=== PATIENT | female | born 1950 | race Caucasian/White ===

== ENCOUNTER 2018-12-11 12:53 | Emergency (ER) | payer MEDICARE, MEDICAID ==
[~2018-12-11] VITALS: Ht 160 cm; Wt 105.2 kg
--- OUTSIDE RECORDS SUMMARY | 2018-12-11 12:57 | XMS REPORT | Continuity of Care Document ---
Author Organization Unknown Address Unknown Allergies There is no data. Medications There is no data. Problems There is no data. Procedures There is no data. Results Test Result Range A1C - 08/12/18 09:00 HEMOGLOBIN A1c 8.4 % of total Hgb <5.7 CMP - 09/16/18 08:12 GLUCOSE 137 mg/dL 65-99 UREA NITROGEN (BUN) 31 mg/dL 7-25 CREATININE 1.65 mg/dL 0.50-0.99 eGFR NON-AFR. POLISH 32 mL/min/1.73m2 > OR=60 eGFR 37 mL/min/1.73m2 > OR=60 BUN/CREATININE RATIO 19 (calc) 6-22 SODIUM 138 mmol/L 135-146 POTASSIUM 5.4 mmol/L 3.5-5.3 CHLORIDE 109 mmol/L 98-110 CARBON DIOXIDE 20 mmol/L 20-32 CALCIUM 8.9 mg/dL 8.6-10.4 PROTEIN, TOTAL 7.1 g/dL 6.1-8.1 ALBUMIN 3.9 g/dL 3.6-5.1 GLOBULIN 3.2 g/dL (calc) 1.9-3.7 ALBUMIN/GLOBULIN RATIO 1.2 (calc) 1.0-2.5 BILIRUBIN, TOTAL 1.0 mg/dL 0.2-1.2 ALKALINE PHOSPHATASE 55 U/L 33-130 AST 20 U/L 10-35 ALT 14 U/L 6-29 Encounters ACCT No. Visit Date/Time Discharge Status Pt. Type Provider Facility Loc./Unit Complaint [id number] 09/23/2018 08:00:00 09/23/2018 23:59:59 CLS Outpatient VAMSHI CABRAL [facility] [id number] 09/16/2018 08:00:00 Document Registration [id number] 08/12/2018 10:15:00 Document Registration
--- NOTE | 2018-12-11 13:16 | ED Lower Extremity ---
General Chief Complaint: Lower Extremity Stated Complaint: LT LEG PAIN Source: patient, EMS, RN notes reviewed Exam Limitations: no limitations History of Present Illness Date Seen by Provider: Dec 11, 2018 Time Seen by Provider: 13:13 Initial Comments Patient presents via EMS c/ c/o left knee and right ankle pain. She states she rolled her right ankle causing her to fall onto her left knee. States her left knee really hurts. Denies any other injuries. Onset: just prior to arrival Severity: severe (03/06) Pain/Injury Location: left knee; right ankle Method of Injury: fell Modifying Factors: Worse With Movement; Improves With Rest Allergies and Home Medications Home Medications Hydrocodone Bit/Acetaminophen 1 Ea Tablet, 1 EACH PO Q6H PRN for BREAK THRU KNEE PAIN Prescribed by: HARRY SARAVIA on 12/11/18 2033 Patient Home Medication List Home Medication List Reviewed: Yes Review of Systems Constitutional: see HPI Musculoskeletal: see HPI, other (left knee and right ankle pain) All Other Systems Reviewed Negative Unless Noted: Yes (Negative excepted noted.) Physical Exam Vital Signs Vital Signs - First Documented 12/11/18 12:53 Temp 96.8 Pulse 72 Resp 18 B/P (MAP) 120/60 (80) Pulse Ox 92 O2 Delivery Room Air Capillary Refill : Height, Weight, BMI Height: '" Weight: lbs. oz. kg; BMI Method: General Appearance: WD/WN, no apparent distress, obese Cardiovascular: regular rate, rhythm Respiratory: no respiratory distress Knees: left knee bone tenderness, left knee pain, left knee soft tissue tenderness, left knee swelling Ankles: right ankle pain, right ankle soft tissue tenderness Neurologic/Psychiatric: no motor/sensory deficits, alert, normal mood/affect, oriented x 3 Skin: warm/dry Progress/Results/Core Measures Results/Orders My Orders Orders - HARRY SARAVIA DO Ankle 3 View Right (12/11/18 13:14) Knee 3 View Left (12/11/18 13:14) Knee Immobilizer (12/11/18 14:21) Crutches (12/11/18 14:21) Vital Signs/I&O 12/11/18 12:53 Temp 96.8 Pulse 72 Resp 18 B/P (MAP) 120/60 (80) Pulse Ox 92 O2 Delivery Room Air Progress Progress Note : Progress Note Discussed ashwin/ Charlie Alfaro and he requested the patient be placed in a knee immobilizer and made non-weight bearing and he will see her in clinic tomorrow, 12/12. Diagnostic Imaging Diagonstic Imaging: Xray Plain Films/CT/US/NM/MRI: knee (LEFT- (+) FX), ankle (RIGHT no FX) Departure Impression Primary Impression: Fracture of tibia Additional Impressions: Sprain and strain of ankle Fall Disposition: 01 HOME, SELF-CARE Condition: Stable Departure-Patient Inst. Decision time for Depature: 14:47 Patient Instructions: Tibial Plateau Fracture (DC) Add. Discharge Instructions: RECOMMEND 400 mg OF IBUPROFEN EVERY 6 HOURS FOR PAIN/SWELLING. FOLLOW UP WITH CHARLIE ALFARO TOMORROW, 12/12, IN THE [facility] SCHEDULED. MUST NOT STAND, OR BEAR WEIGHT ON YOUR LEFT LEG! All discharge instructions reviewed with patient and/or family. Voiced understanding. Scripts Hydrocodone Bit/Acetaminophen (LORTAB 7.5 MG TABLET) 1 Ea Tablet 1 EACH PO Q6H PRN for BREAK THRU KNEE PAIN, #14 TAB 0 Refills Prov: HARRY SARAVIA DO 12/11/18 HARRY SARAVIA DO Dec 11, 2018 13:16
--- NOTE | 2018-12-11 13:41 | Diagnostic Imaging Report ---
INDICATION: Pain. TECHNIQUE: Three views of the right ankle were obtained FINDINGS: The bones are osteopenic. The plafonds and talar dome are intact. The ankle mortise is symmetric. There is no fracture or dislocation. IMPRESSION: Osteopenia and minimal degenerative change; however, no acute fracture or dislocation. Dictated by: Dictated on workstation # [id number]
--- NOTE | 2018-12-11 13:42 | Diagnostic Imaging Report ---
INDICATION: Injury to left knee. TIME OF EXAM: 01:08 p.m. FINDINGS: Three views of the left knee were obtained. There is obliquely oriented lucency through the proximal tibia. There is also lipohemarthrosis present. Findings are consistent with proximal tibial fracture. Osseous density adjacent to the lateral femoral condyle is noted, which could represent an avulsed fracture fragment, however, acuity is indeterminate. Overall alignment is normal. There is medial compartmental degenerative change. IMPRESSION: Comminuted proximal tibial fracture with lipohemarthrosis. Dictated by: Dictated on workstation # [id number]
[2018-12-11] MEDS ORDERED: HYDR-34 PO (14:49)
[2018-12-11 15:00] VITALS: BP 155/86
== END 2018-12-11 15:00 | disposition home or self-care (01) ==
LOC: EDUNIT# 12:53 → ER FS 12:54
DX: S82.192A Other fracture of upper end of left tibia, initial encounter for closed fracture (principal); S93.401A Sprain of unspecified ligament of right ankle, initial encounter; W01.0XXA Fall on same level from slipping, tripping and stumbling without subsequent striking against object, initial encounter
CPT/HCPCS: 73562; 73610

== ENCOUNTER → 2018-12-24 | Outpatient (CLI) | payer MEDICARE, MEDICAID ==
[~2018-12-24] MED LIST: HYDR-34 PO
--- NOTE | 2018-12-24 12:16 | Diagnostic Imaging Report ---
INDICATION: Followup tibial fracture. COMPARISON: December 11, 2018. TECHNIQUE: Three radiographs of the left knee dated December 24, 2018. FINDINGS: Proximal tibial fracture is again identified. Fracture plane extending to the lateral tibial plateau is again seen. Blurring of the fracture plane margins with increasing sclerosis and minimal periosteal reaction is felt to relate to early healing. The anterior aspect of the fracture on the lateral radiograph appears minimally more impacted than the prior exam. No new fracture or dislocation. Improved lipohemarthrosis. No suspicious radiopaque foreign body. IMPRESSION: Interval healing of previously noted proximal tibial fracture. The anterior aspect of the fracture plane appears slightly more impacted when compared to the prior examination. No new acute osseous abnormality. Dictated by: Dictated on workstation # [id number]
== END ==
LOC: RAD FS 08:52
PROVIDERS: ATTEND Nurse Practitioner
DX: S82.192D Other fracture of upper end of left tibia, subsequent encounter for closed fracture with routine healing (principal)
CPT/HCPCS: 73562

== ENCOUNTER → 2019-01-07 | Outpatient (CLI) | payer MEDICARE, MEDICAID ==
--- NOTE | 2019-01-07 17:01 | Diagnostic Imaging Report ---
INDICATION: Fracture, follow-up. TECHNIQUE: Three views of the left knee. CORRELATION STUDY: 12/24/2018, 12/11/2018. FINDINGS: Impacted fracture at the medial tibial plateau is again demonstrated. Slight progressive sclerosis is present. The alignment is otherwise stable. Portion of the fracture line is still present and visualized. There is linear extension of the fracture line to the lateral tibial plateau but without significant depression or offset. Fracture fragment adjacent to the lateral femoral condyle is demonstrated but appears slightly less pronounced suggestive of some bony resorption. Ossification of the fibular head unchanged. Soft tissue edema. IMPRESSION: 1. Suggestion of slight progressive healing changes with perhaps some slightly more impacted appearance about the medial tibial fracture. Dictated by: Dictated on workstation # [id number]
== END ==
LOC: RAD 09:12
PROVIDERS: ATTEND Nurse Practitioner
DX: S82.192D Other fracture of upper end of left tibia, subsequent encounter for closed fracture with routine healing (principal)
CPT/HCPCS: 73562

== ENCOUNTER → 2019-01-21 | Outpatient (CLI) | payer MEDICARE, MEDICAID ==
--- NOTE | 2019-01-21 19:31 | Diagnostic Imaging Report ---
INDICATION: Fracture. Comparison made with prior examination from 01/07/2019. FINDINGS: There is stable alignment of the tibial plateau fracture with some sclerosis. This is essentially unchanged when compared to the prior examination. There is no other acute fracture or dislocation. Soft tissues are unremarkable. IMPRESSION: Stable alignment of the healing fracture of the medial tibial plateau. Dictated by: Dictated on workstation # [id number]
== END ==
LOC: RAD FS 08:07
PROVIDERS: ATTEND Nurse Practitioner
DX: S82.192D Other fracture of upper end of left tibia, subsequent encounter for closed fracture with routine healing (principal)
CPT/HCPCS: 73562

== ENCOUNTER → 2019-02-20 | Outpatient (CLI) | payer MEDICARE, MEDICAID ==
--- NOTE | 2019-02-20 08:50 | Diagnostic Imaging Report ---
Indication: Tibial fracture. AP and lateral views of the left knee are obtained. Comparison is made to study of 01/21/2019. There is continued sclerosis about the slightly angulated, mildly impacted, proximal tibial metaphyseal region fracture. Fracture line is largely obscured by bridging callus. Mild marginal spurring is again noted about the knee joint. There is no evidence of new fracture or malalignment. No significant joint fluid is seen. Impression: Further ongoing healing of mildly impacted proximal tibial fracture. Dictated by: Dictated on workstation # [id number]
== END ==
LOC: RAD FS 08:25
PROVIDERS: ATTEND Nurse Practitioner
DX: S82.192D Other fracture of upper end of left tibia, subsequent encounter for closed fracture with routine healing (principal)
CPT/HCPCS: 73560

== ENCOUNTER → 2019-03-11 | Outpatient (CLI) | payer MEDICARE, MEDICAID ==
--- NOTE | 2019-03-11 15:19 | Diagnostic Imaging Report ---
INDICATION: Left knee fracture, follow-up. TIME OF EXAM: 02:11 p.m. COMPARISON: Comparison is made with prior radiographs from 02/20/2019. FINDINGS: Continued healing of the proximal tibia, medial side is noted. There appears to be some increasing sclerosis consistent with healing. Fracture lines are blurring. Overall alignment is stable. Medial and lateral compartments are maintained. IMPRESSION: Continued healing proximal tibial fracture when compared with exam from 02/20/2019. Dictated by: Dictated on workstation # [id number]
--- NOTE | 2019-03-11 15:24 | Diagnostic Imaging Report ---
INDICATION: Pain in left foot. TIME OF EXAM: 2:15 p.m. FINDINGS: Three views of the left foot were obtained. There is severe demineralization of the left foot. The metatarsals appear to be intact. The phalanges appear intact. Midfoot and hindfoot are unremarkable. No fractures are seen. There is some dorsal soft tissue swelling. IMPRESSION: Dorsal soft tissue swelling and severe demineralization. No acute fracture is detected. Dictated by: Dictated on workstation # [id number]
== END ==
LOC: RAD FS 13:55
PROVIDERS: ATTEND Nurse Practitioner
DX: S82.192D Other fracture of upper end of left tibia, subsequent encounter for closed fracture with routine healing (principal); M79.675 Pain in left toe(s)
CPT/HCPCS: 73560; 73630

== ENCOUNTER → 2019-03-20 | Outpatient (CLI) | payer MEDICARE, MEDICAID ==
--- NOTE | 2019-03-20 08:44 | Diagnostic Imaging Report ---
INDICATION: Left knee fracture follow-up. FINDINGS: PA and lateral views of the left knee show healing fracture of the medial tibial plateau. Alignment and positioning is unchanged from the comparison exam from 03/11/2019. IMPRESSION: Stable healing proximal tibial fracture. Dictated by: Dictated on workstation # [id number]
== END ==
LOC: RAD FS 08:07
PROVIDERS: ATTEND Nurse Practitioner
DX: S82.192D Other fracture of upper end of left tibia, subsequent encounter for closed fracture with routine healing (principal); X58.XXXD Exposure to other specified factors, subsequent encounter
CPT/HCPCS: 73562

== ENCOUNTER → 2019-04-15 | Outpatient (CLI) | payer MEDICARE, MEDICAID ==
--- NOTE | 2019-04-15 16:03 | Diagnostic Imaging Report ---
INDICATION: Asymptomatic postmenopausal screening COMPARISON: Baseline FINDINGS: AP Spine L1-L4: [BMD (g/cm2): 1.275] [T-Score: 0.6] [Z-Score: 1.1] [BMD Previous: NA] [BMD % Change: NA] LT Hip Neck: [BMD (g/cm2): 0.729] [T-Score: -2.2] [Z-Score: -1.5] LT Hip Total: [BMD (g/cm2):0.818] [T-Score:-1.5] [Z-Score: -1.1] [BMD Previous: NA] [BMD % Change: NA] RT Hip Neck: [BMD (g/cm2):0.813] [T-Score:-1.6] [Z-Score:-0.9] RT Hip Total: [BMD (g/cm2):0.861] [T-score:-1.2] [Z-Score:-0.7] [BMD Previous:NA] [BMD % Change:NA] *Indicates significant change from prior examination based on 95% confidence level. World Health Organization criteria for BMD interpretation classify patients as Normal (T-score at or above -1.0), Osteopenic (T-score between -1.0 and -2.5) or Osteoporotic (T-score at or below -2.5). LIMITATIONS AND MODIFICATION: None. FRACTURE RISK (FRAX SCORE): The ten year probability of (%): Major Osteoporotic Fracture: [17.3] Hip Fracture: [3.0] IMPRESSION: 1. Osteopenia (Low bone mass). 2. Baseline examination. 3. See below National Osteoporosis Foundation guidelines on when to potentially initiate pharmacologic therapy. Based on the National Osteoporosis Foundation Guidelines, pharmacologic treatment should be initiated in any of the following, unless clinical conditions suggest otherwise: * Any patient with prior fragility fracture of the hip or vertebrae. A spine fracture indicates 5X risk for subsequent spine fracture and 2X risk for subsequent hip fracture. * Osteoporosis (T-score <-2.5). * Postmenopausal women and men age 50 and older with low bone mass/osteopenia (T-score between -1.0 and -2.5) by DXA and 10-year major osteoporotic fracture greater than 20% or a 10-year probability of hip fracture greater than 3%. These fracture risks are supplied above in the FRAX score, if applicable. * Clinician judgement and/or patient preferences may indicate treatment for people with 10-year fracture probabilities above or below these levels. Dictated by: Dictated on workstation # [id number]
== END ==
LOC: RAD 10:28
PROVIDERS: ATTEND Nurse Practitioner Family
DX: Z13.820 Encounter for screening for osteoporosis (principal); M85.89 Other specified disorders of bone density and structure, multiple sites; M19.90 Unspecified osteoarthritis, unspecified site; Z78.0 Asymptomatic menopausal state
CPT/HCPCS: 77080

== ENCOUNTER 2020-02-20 11:28 | Emergency (ER) | payer MEDICARE, MEDICAID ==
[~2020-02-20] VITALS: Ht 160 cm; Wt 105.2 kg
[2020-02-20 12:25] LABS: BASOPHILS % (AUTO) 0 % (0-10); EOSINOPHILS % (AUTO) 0 % (0-10); HEMATOCRIT 34 % (35-52); HEMOGLOBIN 11.1 G/DL (11.5-16.0); LYMPHOCYTES # (AUTO) 1.1 X 10^3 (1.0-4.0); LYMPHOCYTES % (AUTO) 19 % (12-44); MEAN CORPUSCULAR HEMOGLOBIN 30 PG (25-34); MEAN CORPUSCULAR HGB CONC 33 G/DL (32-36); MEAN CORPUSCULAR VOLUME 94 FL (80-99); MEAN PLATELET VOLUME 9.3 FL (7.4-10.4); MONOCYTES # (AUTO) 0.3 X 10^3 (0.0-1.0); MONOCYTES % (AUTO) 6 % (0-12); NEUTROPHILS # (AUTO) 4.4 X 10^3 (1.8-7.8); NEUTROPHILS % (AUTO) 74 % (42-75); PLATELET COUNT 252 10^3/uL (130-400); WHITE BLOOD COUNT 5.9 10^3/uL (4.3-11.0)
--- NOTE | 2020-02-20 12:33 | ED Respiratory ---
General Chief Complaint: Respiratory Problems Stated Complaint: SOB Nursing Triage Note: Patient reports cough, shortness of breath, fever, and body aches since last . Source: patient Exam Limitations: no limitations History of Present Illness Date Seen by Provider: Feb 20, 2020 Time Seen by Provider: 11:30 Initial Comments The patient is a very pleasant 69-year-old female presents for evaluation of cough, shortness of breath, fever, body aches over the last 8 days. She went to the walk-in clinic where they noted that she had a temperature of 101F as well as a room air saturation of 89%. She states that she normally stays at home and has not really come into contact with any other people but specifically denies any sick contacts. She is alert and oriented 4, calm, and appears to be in no distress at this time. She notes that her symptoms started on after she received her influenza vaccination. Timing/Duration: other (8 days ago) Severity: moderate Associated Symptoms: cough, fever/chills, shortness of breath Allergies and Home Medications Allergies Coded Allergies: butorphanol (Verified Allergy, Unknown, 02/20/20) Home Medications Hydrocodone Bit/Acetaminophen 1 Ea Tablet, 1 EACH PO Q6H PRN for BREAK THRU KNEE PAIN Prescribed by: HARRY SARAVIA on 12/11/18 1449 Patient Home Medication List Home Medication List Reviewed: Yes Review of Systems Review of Systems Constitutional: fever, malaise Respiratory: cough Cardiovascular: no symptoms reported Gastrointestinal: no symptoms reported Genitourinary: no symptoms reported Musculoskeletal: no symptoms reported Skin: no symptoms reported Psychiatric/Neurological: No Symptoms Reported Hematologic/Lymphatic: No Symptoms Reported Immunological/Allergic: no symptoms reported All Other Systems Reviewed Negative Unless Noted: Yes Past Zyspegs-Fopcdx-Fotatu Hx Past Med/Social Hx: Reviewed Nursing Past Med/Soc Hx Patient Social History Alcohol Use: Denies Use Recreational Drug Use: No Smoking Status: Never a Smoker 2nd Hand Smoke Exposure: No Recent Foreign Travel: No Contact w/Someone Who Travel: No Recent Infectious Disease Expo: No Recent Hopitalizations: No Physical Abuse: No Sexual Abuse: No Mistreated: No Fear: No Seasonal Allergies Seasonal Allergies: No Past Medical History Surgeries: Yes Hysterectomy, Oophorectomy, Tonsillectomy Respiratory: No Cardiac: No High Cholesterol, Hypertension Neurological: No [employer] History: Hysterectomy Genitourinary: No Gastrointestinal: No Musculoskeletal: No Arthritis Endocrine: Yes Diabetes, Insulin dep HEENT: No Cancer: No Psychosocial: No Depression Integumentary: No Physical Exam Vital Signs - First Documented 02/20/20 11:42 Temp 38.0 Pulse 79 Resp 24 B/P (MAP) 128/70 (89) Pulse Ox 92 O2 Delivery Nasal Cannula O2 Flow Rate 3.00 Capillary Refill : Less Than 3 Seconds Height: 5'3.00" Weight: 232lbs. oz. 105.329980sm; 41.00 BMI Method:Stated General Appearance: WD/WN, no apparent distress Eyes: Bilateral Eye Normal Inspection HEENT: PERRL/EOMI, normal ENT inspection Neck: non-tender, full range of motion, supple, normal inspection Respiratory: normal breath sounds, no respiratory distress, no accessory muscle use, crackles (left lung field) Cardiovascular: regular rate, rhythm, no edema, no JVD, no murmur Gastrointestinal: normal bowel sounds, non tender, soft, no pulsatile mass Extremities: normal range of motion, non-tender, normal inspection, no pedal edema, no calf tenderness Neurologic/Psychiatric: roll panner II-XII nml as tested, no motor/sensory deficits, alert, normal mood/affect, oriented x 3 Skin: normal color, warm/dry Focused Exam Lactate Level 02/20/20 12:05: Lactic Acid Level 1.50 Lactic Acid Level Laboratory Tests Test 02/20/20 12:05 Lactic Acid Level 1.50 MMOL/L (0.50-2.00) Progress/Results/Core Measures Suspected Sepsis Recent Fever Within 48 Hours: Yes Infection Criteria Present: Suspected New Infection New/Unexplained Altered Menta: No Sepsis Screen: Possible Sepsis Risk SIRS Temperature: Pulse: 79 Respiratory Rate: 24 Laboratory Tests 02/20/20 12:05: White Blood Count 5.9 Blood Pressure 128 /70 Mean: 89 02/20/20 12:05: Lactic Acid Level 1.50 Laboratory Tests 02/20/20 12:05: Creatinine 2.34H, Platelet Count 252, Total Bilirubin 0.6 Results/Orders Lab Results Laboratory Tests Test 02/20/20 12:05 02/20/20 12:20 Range/Units White Blood Count 5.9 4.3-11.0 10^3/uL Red Blood Count 3.65 L 4.35-5.85 10^6/uL Hemoglobin 11.1 L 11.5-16.0 G/DL Hematocrit 34 L 35-52 % Mean Corpuscular Volume 94 80-99 FL Mean Corpuscular Hemoglobin 30 25-34 PG Mean Corpuscular Hemoglobin Concent 33 32-36 G/DL Red Cell Distribution Width 12.9 10.0-14.5 % Platelet Count 252 130-400 10^3/uL Mean Platelet Volume 9.3 7.4-10.4 FL Immature Granulocyte % (Auto) 0 % Neutrophils (%) (Auto) 74 42-75 % Lymphocytes (%) (Auto) 19 12-44 % Monocytes (%) (Auto) 6 0-12 % Eosinophils (%) (Auto) 0 0-10 % Basophils (%) (Auto) 0 0-10 % Neutrophils # (Auto) 4.4 1.8-7.8 X 10^3 Lymphocytes # (Auto) 1.1 1.0-4.0 X 10^3 Monocytes # (Auto) 0.3 0.0-1.0 X 10^3 Eosinophils # (Auto) 0.0 0.0-0.3 10^3/uL Basophils # (Auto) 0.0 0.0-0.1 10^3/uL Immature Granulocyte # (Auto) 0.0 0.0-0.1 10^3/uL Sodium Level 133 L 135-145 MMOL/L Potassium Level 5.3 H 3.6-5.0 MMOL/L Chloride Level 99 98-107 MMOL/L Carbon Dioxide Level 19 L 21-32 MMOL/L Anion Gap 15 H 5-14 MMOL/L Blood Urea Nitrogen 44 H 7-18 MG/DL Creatinine 2.34 H 0.60-1.30 MG/DL Estimat Glomerular Filtration Rate 21 BUN/Creatinine Ratio 19 Glucose Level 193 H 70-105 MG/DL Lactic Acid Level 1.50 0.50-2.00 MMOL/L Calcium Level 8.7 8.5-10.1 MG/DL Corrected Calcium 9.0 8.5-10.1 MG/DL Magnesium Level 1.5 L 1.6-2.4 MG/DL Total Bilirubin 0.6 0.1-1.0 MG/DL Aspartate Amino Transf (AST/SGOT) 52 H 5-34 U/L Alanine Aminotransferase (ALT/SGPT) 28 0-55 U/L Alkaline Phosphatase 58 40-136 U/L Troponin I < 0.30 <0.30 NG/ML Pro-B-Type Natriuretic Peptide 133.3 H <75.0 PG/ML Total Protein 7.4 6.4-8.2 GM/DL Albumin 3.6 3.2-4.5 GM/DL My Orders Orders - ALEXIS ALMARAZ DO Cbc With Automated Diff (02/20/20 11:37) Comprehensive Metabolic Panel (02/20/20 11:37) Lactic Acid Analyzer (02/20/20 11:37) Magnesium (02/20/20 11:37) Blood Culture (02/20/20 11:37) Chest 1 View Ap/Pa Only (02/20/20 11:37) Coronavirus Sars-Cov-2 So 2018 (02/20/20 11:37) Ekg Tracing (02/20/20 11:37) Continuous Ekg Monitoring (02/20/20 11:37) Probnp Fs (02/20/20 11:37) Troponin I Fs (02/20/20 11:37) Continuous Pulse Ox (02/20/20 11:37) Ns Iv 1000 Ml (Sodium Chloride 0.9%) (02/20/20 13:00) Acetaminophen Tablet (Tylenol Tablet) (02/20/20 13:00) Oxygen-Administer (02/20/20 12:51) Medications Given in ED Current Medications Medications Dose Ordered Sig/Tomas Route Start Time Stop Time Status Last Admin Dose Admin Acetaminophen 1,000 mg ONCE ONCE PO 02/20/20 13:00 02/20/20 13:01 DC 02/20/20 13:19 1,000 MG Vital Signs/I&O 02/20/20 11:42 Temp 38.0 Pulse 79 Resp 24 B/P (MAP) 128/70 (89) Pulse Ox 92 O2 Delivery Nasal Cannula O2 Flow Rate 3.00 Capillary Refill : Less Than 3 Seconds Blood Pressure Mean: 89 Progress Note : Progress Note @1340 - The patient was updated on lab and imaging results and stated to the nurse that she refused admission and wanted to leave AGAINST MEDICAL ADVICE. The patient has multiple pets at home and has a roommate. The nurse Deann called the patient's roommate Hyun who stated that she would not be able to change the patient's mind. I spoke with the patient at length and it was expressed both by the nurse and myself that without oxygen and medical treatment the patient could . She is alert and oriented 4 and expresses verbal understanding of this risk. The patient that we would be happy to take care of her if she changes her mind and comes back. She also understands that [facility]'m [facility] but she does not want to be admitted at any hospital. She does understand the risks of leaving and states that she will sign the AGAINST MEDICAL ADVICE paperwork. ECG Comment @1210 - normal sinus rhythm, rate of 78, mild left axis deviation is present, somewhat low voltage, no acute ischemic findings noted, no STEMI, reviewed and interpreted by myself Departure Impression Primary Impression: Hypoxia Additional Impressions: Acute URI Hypotension Requires supplemental oxygen Renal insufficiency Left against medical advice Disposition: 07 AGAINST MEDICAL ADVICE Condition: Against Medical Advice Departure-Patient Inst. Decision time for Depature: 13:44 Referrals: [facility] (PCP) Primary Care Physician VAMSHI CABRAL APRN (Family) Primary Care Physician Patient Instructions: Low Blood Pressure, Shortness of Breath (Dyspnea) (DC), Viral Syndrome (DC), Acute Kidney Injury Add. Discharge Instructions: You may return at any time even a UTI was to leave AGAINST MEDICAL ADVICE today. Please reconsider your decision to go home as this can be life-threatening as we discussed. ALEXIS ALMARAZ DO Feb 20, 2020 12:33
--- NOTE | 2020-02-20 12:34 | Diagnostic Imaging Report ---
INDICATION: Shortness of air. Fever. COMPARISON: None. FINDINGS: Single frontal radiographic view of the chest was obtained and demonstrates mild cardiomegaly and pulmonary vascular congestion. Lungs are clear. There is no focal consolidation, large effusion, nor pneumothorax. Osseous structures show no gross acute abnormalities. IMPRESSION: 1. Cardiomegaly and pulmonary vascular congestion. Dictated by: Dictated on workstation # [id number]
[2020-02-20 12:45] LABS: BUN/CREATININE RATIO 19; CARBON DIOXIDE 19 MMOL/L (21-32); CHLORIDE 99 MMOL/L (98-107); CREATININE SERUM 2.34 MG/DL (0.60-1.30); GFR ESTIMATED 21; GLUCOSE 193 MG/DL (70-105); POTASSIUM 5.3 MMOL/L (3.6-5.0); SODIUM 133 MMOL/L (135-145)
[2020-02-20 12:46] LABS: ALANINE AMINOTRANSFERASE 28 U/L (0-55); ALBUMIN 3.6 GM/DL (3.2-4.5); ALKALINE PHOSPHATASE 58 U/L (40-136); BILIRUBIN,TOTAL 0.6 MG/DL (0.1-1.0); CALCIUM 8.7 MG/DL (8.5-10.1); MAGNESIUM 1.5 MG/DL (1.6-2.4); TOTAL PROTEIN 7.4 GM/DL (6.4-8.2)
[2020-02-20] MEDS ORDERED: NS IV 1000 ML 1,000 ML IV SCH (13:00)
[2020-02-20] MEDS ORDERED: ACETAMINOPHEN 500 MG TAB (TYLENOL) PO ONE (13:00)
--- NOTE | 2020-02-20 13:27 | NUR ---
Patient states she will not go to any facility to be admitted to a hospital. Informed patient that she is requiring 5 liters of oxygen to maintain oxygen saturations 89-90%, informed that her renal function is impaired, informed that her blood pressure is low and that she could decompensate and pass away very quickly without medical treatment. Patient verbalizes understanding of her medical condition and continues to refuse admission or transfer. Questioned patient on why she does not want to be admitted, and patient will not give a reason, simply states "I just don't want to go." Called patient's friend with patient's permission and informed of patient's condition and situation. Friend states she had a very difficult time convincing patient to come to the ED and does not believe she can persuade patient to be admitted. Dr. Albarran informed of patient's refusal and in patient's room to discuss her situation at this time.
[2020-02-20 14:00] VITALS: BP 89/54
== END 2020-02-20 14:00 | disposition left against medical advice (07) ==
LOC: EDUNIT# 11:28 → ER FS 11:31
DX: U07.1 COVID-19 (principal); R09.02 Hypoxemia; I95.9 Hypotension, unspecified; N28.9 Disorder of kidney and ureter, unspecified; Z99.81 Dependence on supplemental oxygen; Z88.6 Allergy status to analgesic agent
CPT/HCPCS: 36415; 71045; 80053; 83605; 83735; 83880; 84484; 85025; 87040; 99284; U0002; 87635

== ENCOUNTER 2020-02-22 10:17 | Inpatient (IN) | payer MEDICARE, MEDICAID ==
[~2020-02-22] VITALS: Ht 160 cm; Wt 107.1 kg
--- NOTE | 2020-02-22 11:18 | ED Dyspnea ---
General Chief Complaint: Respiratory Problems Stated Complaint: SOB Nursing Triage Note: Patient seen in the ED on Sunday for shortness of breath, cough, and fever. Patient received positive COVID test from that ED visit. Patient left AMA on Sunday refusing admission, despite oxygen saturations 86-87% on room air, B/P 89/54, and renal insufficiency. Patient presents to the ED again today stating she is having difficulty breathing. Patient states she is agreeable to being admitted to [facility] in [place] today. Patient reports she took advil this morning around 0730 for fever. Source of Information: Patient, Old Records History of Present Illness Date Seen by Provider: Feb 22, 2020 Time Seen by Provider: 10:48 Initial Comments 69-year-old female presenting with continued shortness of breath and cough since being seen on Sunday here in the emergency department. She was diagnosed with croup with hand pneumonia at that time but refused admission and left AGAINST MEDICAL ADVICE. She states that she was continuing to feel worse and now agrees to being admitted. She would like to be admitted down to [facility]. She states that she has had a fever up to 101 Fahrenheit over the weekend at [facility]. She continues to have cough and shortness of breath. She does not usually use oxygen at home. She had oxygen saturation of 82% when she arrived here in the emergency department. Allergies and Home Medications Allergies Coded Allergies: butorphanol (Verified Allergy, Unknown, 02/20/20) Home Medications Hydrocodone Bit/Acetaminophen 1 Ea Tablet, 1 EACH PO Q6H PRN for BREAK THRU KNEE PAIN Prescribed by: HARRY SARAVIA on 12/11/18 1449 Patient Home Medication List Home Medication List Reviewed: Yes Review of Systems Review of Systems Constitutional: chills, fever, malaise EENTM: hoarseness, nose congestion Respiratory: cough, short of breath, wheezing Cardiovascular: chest pain (tightness) Gastrointestinal: no symptoms reported Genitourinary: no symptoms reported Musculoskeletal: no symptoms reported Skin: no symptoms reported Psychiatric/Neurological: No Symptoms Reported Past Oroafly-Kihynl-Hlpwbm Hx Past Med/Social Hx: Reviewed Nursing Past Med/Soc Hx Patient Social History Alcohol Use: Denies Use Recreational Drug Use: No Smoking Status: Never a Smoker 2nd Hand Smoke Exposure: No Recent Foreign Travel: No Contact w/Someone Who Travel: No Recent Infectious Disease Expo: No Recent Hopitalizations: No Physical Abuse: No Sexual Abuse: No Mistreated: No Fear: No Seasonal Allergies Seasonal Allergies: No Past Medical History Surgeries: Yes Hysterectomy, Oophorectomy, Tonsillectomy Respiratory: No Cardiac: No High Cholesterol, Hypertension Neurological: No 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 oz. 105.443143fb; 41.00 BMI Method:Stated General Appearance: Moderate Distress, Obese HEENT: No Moist Mucous Membranes (slightly dry mucous membranes) Neck: Full Range of Motion, Supple Respiratory: No Accessory Muscle Use, No Respiratory Distress, Decreased Breath Sounds; No Respiratory Distress, No Stridor, No Wheezing Cardiovascular: Regular Rate, Rhythm, Normal Peripheral Pulses Gastrointestinal: Normal Bowel Sounds, No Pulsatile Mass, Non Tender, Soft Extremity: Normal Capillary Refill, Pedal Edema (trace to 1+ pitting edema to BLE) Neurologic/Psychiatric: Alert, Oriented x3 Skin: Normal Color, Warm/Dry Focused Exam Lactate Level 02/22/20 10:45: Lactic Acid Level 1.74 Lactic Acid Level Laboratory Tests Test 02/22/20 10:45 Lactic Acid Level 1.74 MMOL/L (0.50-2.00) Progress/Results/Core Measures Results/Orders Lab Results Laboratory Tests Test 02/22/20 10:45 02/22/20 13:20 Range/Units White Blood Count 4.7 4.3-11.0 10^3/uL Red Blood Count 3.71 L 4.35-5.85 10^6/uL Hemoglobin 11.1 L 11.5-16.0 G/DL Hematocrit 35 35-52 % Mean Corpuscular Volume 94 80-99 FL Mean Corpuscular Hemoglobin 30 25-34 PG Mean Corpuscular Hemoglobin Concent 32 32-36 G/DL Red Cell Distribution Width 12.9 10.0-14.5 % Platelet Count 305 130-400 10^3/uL Mean Platelet Volume 9.4 7.4-10.4 FL Immature Granulocyte % (Auto) 0 % Neutrophils (%) (Auto) 71 42-75 % Lymphocytes (%) (Auto) 23 12-44 % Monocytes (%) (Auto) 6 0-12 % Eosinophils (%) (Auto) 0 0-10 % Basophils (%) (Auto) 0 0-10 % Neutrophils # (Auto) 3.3 1.8-7.8 X 10^3 Lymphocytes # (Auto) 1.1 1.0-4.0 X 10^3 Monocytes # (Auto) 0.3 0.0-1.0 X 10^3 Eosinophils # (Auto) 0.0 0.0-0.3 10^3/uL Basophils # (Auto) 0.0 0.0-0.1 10^3/uL Immature Granulocyte # (Auto) 0.0 0.0-0.1 10^3/uL Prothrombin Time 14.6 12.2-14.7 SEC INR Comment 1.1 0.8-1.4 Activated Partial Thromboplast Time 32 24-35 SEC Sodium Level 135 135-145 MMOL/L Potassium Level 5.0 3.6-5.0 MMOL/L Chloride Level 100 98-107 MMOL/L Carbon Dioxide Level 21 21-32 MMOL/L Anion Gap 14 5-14 MMOL/L Blood Urea Nitrogen 41 H 7-18 MG/DL Creatinine 1.92 H 0.60-1.30 MG/DL Estimat Glomerular Filtration Rate 26 BUN/Creatinine Ratio 21 Glucose Level 180 H 70-105 MG/DL Lactic Acid Level 1.74 0.50-2.00 MMOL/L Calcium Level 9.1 8.5-10.1 MG/DL Corrected Calcium 9.4 8.5-10.1 MG/DL Total Bilirubin 0.8 0.1-1.0 MG/DL Aspartate Amino Transf (AST/SGOT) 47 H 5-34 U/L Alanine Aminotransferase (ALT/SGPT) 25 0-55 U/L Alkaline Phosphatase 57 40-136 U/L Troponin I < 0.30 <0.30 NG/ML C-Reactive Protein 11.31 H <0.50 MG/DL Total Protein 7.5 6.4-8.2 GM/DL Albumin 3.6 3.2-4.5 GM/DL Blood Gas Puncture Site LEFT RADIAL Blood Gas Patient Temperature 37.1 Arterial Blood pH 7.41 7.37-7.43 Arterial Blood Partial Pressure CO2 36 35-45 MMHG Arterial Blood Partial Pressure O2 69 L 79-93 MMHG Arterial Blood HCO3 23 23-27 MMOL/L Arterial Blood Total CO2 23.9 21.0-31.0 MMOL/L Arterial Blood Oxygen Saturation 94 94-100 % Arterial Blood Base Excess -1.4 -2.5-2.5 MMOL/L Den Test YES-POS Blood Gas Ventilator Setting NO Blood Gas Inspired Oxygen 4 L My Orders Orders - RAVIN CHRISTOPHER MD Chest 1 View Ap/Pa Only (02/22/20 11:05) Ekg Tracing (02/22/20 11:05) Monitor-Rhythm Ecg Trace Only (02/22/20 11:12) Ed Iv/Invasive Line Start (02/22/20 11:12) Cbc With Automated Diff (02/22/20 11:12) Comprehensive Metabolic Panel (02/22/20 11:12) Crp Fs (02/22/20 11:12) Troponin I Fs (02/22/20 11:12) Protime With Inr (02/22/20 11:12) Partial Thromboplastin Time (02/22/20 11:12) Blood Culture (02/22/20 11:12) Lactic Acid Analyzer (02/22/20 11:12) Oxygen-Administer DAILY (02/22/20 11:12) Blood Culture (02/22/20 11:00) Arterial Blood Gas (02/22/20 12:46) Dexamethasone Injection (Decadron Inje (02/22/20 12:46) Ns Iv 1000 Ml (Sodium Chloride 0.9%) (02/22/20 13:00) Vital Signs/I&O 02/22/20 02/22/20 10:30 16:30 Temp 37.1 Pulse 68 72 Resp 26 20 B/P (MAP) 156/72 (100) 154/72 Pulse Ox 98 95 O2 Delivery Nasal Cannula Nasal Cannula O2 Flow Rate 5.00 4.00 Blood Pressure Mean: 100 Progress Progress Note #1: Progress Note recheck labs, CXR, ECG. Placed on supplemental oxygen and her O2 sats improved to mid to upper 90s from 82%. Progress Note #2: Time: 12:44 Progress Note CBC stable and chemistry shows mild improvement in Cr from Sunday. Lactic Acid slightly increased from Sunday. Glucose 180. CRP elevated to 11.3. CXR shows diffuse patchy infiltrates consistent with Covid. D/w Dr. Strong conversion worker for [facility] and she accepted pt for admit. She did request ABG and Decadron 6 mg IV dose. Progress Note #3: Time: 13:35 Progress Note ABG shows pO2 69 on 4 Lpm of O2. Initial ECG Impression Date: Feb 22, 2020 Initial ECG Impression Time: 11:10 Initial ECG Rate: 68 Initial ECG Rhythm: Normal Sinus Initial ECG Comparisson: No Previous ECG Available Comment Normal sinus rhythm with a heart rate is 60 bpm. NE interval of 135 ms. QT interval 523 ms with a QTc interval 557 ms. There is no acute ST elevation. There is some baseline wander on the tracing. There is T-wave flattening. Diagnostic Imaging Diagonstic Imaging: Xray Plain Films/CT/US/NM/MRI: chest Comments [id number] PT STATUS: REG ER : 1950 PHYSICIAN: RAVIN CHRISTOPHER MD ADMIT DATE: 02/22/20/ER FS Draft Date of Exam:02/22/20 CHEST 1 VIEW AP/PA ONLY Clinical indications: Patient is COVID positive with shortness of breath. Exam: Portable chest x-ray upright view. Comparisons: Chest x-ray dated 02/20/2020. Findings: There is stable cardiomegaly. There is mild pulmonary vascular congestion which appears to have slightly decreased compared to prior study. There is patchy airspace opacities involving both midlung zamora again noted which may be related to pulmonary congestion or lung infiltrates. There is no pleural effusion or pneumothorax. The remainder of this exam shows no significant interval change compared to the prior study of comparison. IMPRESSION: 1: There is again seen cardiomegaly and pulmonary vascular congestion which has slightly improved. 2: There is stable persistent bilateral lung airspace opacities which may represent lung infiltrates/pneumonia and/or pulmonary congestion. Dictated on workstation # [id number] Dict: 02/22/20 1132 Trans: 02/22/20 1159 REPLACED BY [facility] [id number] Interpreted by: AL MTZ MD Electronically signed by: Departure Communication (Admissions) Time/Spoke to Admitting Phy: 12:44 d/w Dr. Strong conversion worker for [facility] about admit for COVID-19 infection and hypoxia. Pt has diffuse patchy infiltrates on CXR and positive Covid-19 swab from Sunday. With her supplemental O2 requirement she states she is willing to be admitted now after she left AMA on Sunday night. Given Dexamethasone 6 mg IV here and continue with supplemental oxygen and IVF. Impression Primary Impression: COVID-19 virus infection Additional Impression: Hypoxia Disposition: ADMITTED INPATIENT Condition: Stable Admissions Decision to Admit Reason: Admit from ER (General) Decision to Admit/Date: Feb 22, 2020 Time/Decision to Admit Time: 12:44 Departure-Patient Inst. Referrals: [facility]/CRISELDA (PCP) Primary Care Physician VAMSHI CABRAL APRN (Family) Primary Care Physician RAVIN CHRISTOPHER MD Feb 22, 2020 11:18
[2020-02-22 11:51] LABS: BASOPHILS % (AUTO) 0 % (0-10); EOSINOPHILS % (AUTO) 0 % (0-10); HEMATOCRIT 35 % (35-52); HEMOGLOBIN 11.1 G/DL (11.5-16.0); MEAN CORPUSCULAR HEMOGLOBIN 30 PG (25-34); MEAN CORPUSCULAR HGB CONC 32 G/DL (32-36); MEAN CORPUSCULAR VOLUME 94 FL (80-99); MEAN PLATELET VOLUME 9.4 FL (7.4-10.4); MONOCYTES % (AUTO) 6 % (0-12); PLATELET COUNT 305 10^3/uL (130-400); WHITE BLOOD COUNT 4.7 10^3/uL (4.3-11.0)
[2020-02-22 11:52] LABS: LYMPHOCYTES # (AUTO) 1.1 X 10^3 (1.0-4.0); LYMPHOCYTES % (AUTO) 23 % (12-44); MONOCYTES # (AUTO) 0.3 X 10^3 (0.0-1.0); NEUTROPHILS # (AUTO) 3.3 X 10^3 (1.8-7.8); NEUTROPHILS % (AUTO) 71 % (42-75)
[2020-02-22 11:54] LABS: CHLORIDE 100 MMOL/L (98-107); INR 1.1 (0.8-1.4); PROTHROMBIN TIME PATIENT 14.6 SEC (12.2-14.7); SODIUM 135 MMOL/L (135-145)
[2020-02-22 11:55] LABS: ALANINE AMINOTRANSFERASE 25 U/L (0-55); ALBUMIN 3.6 GM/DL (3.2-4.5); ALKALINE PHOSPHATASE 57 U/L (40-136); BILIRUBIN,TOTAL 0.8 MG/DL (0.1-1.0); BUN/CREATININE RATIO 21; CALCIUM 9.1 MG/DL (8.5-10.1); CARBON DIOXIDE 21 MMOL/L (21-32); CREATININE SERUM 1.92 MG/DL (0.60-1.30); GFR ESTIMATED 26; GLUCOSE 180 MG/DL (70-105); TOTAL PROTEIN 7.5 GM/DL (6.4-8.2)
--- NOTE | 2020-02-22 11:59 | Diagnostic Imaging Report ---
Clinical indications: Patient is COVID positive with shortness of breath. Exam: Portable chest x-ray upright view. Comparisons: Chest x-ray dated 02/20/2020. Findings: There is stable cardiomegaly. There is mild pulmonary vascular congestion which appears to have slightly decreased compared to prior study. There is patchy airspace opacities involving both midlung zamora again noted which may be related to pulmonary congestion or lung infiltrates. There is no pleural effusion or pneumothorax. The remainder of this exam shows no significant interval change compared to the prior study of comparison. IMPRESSION: 1: There is again seen cardiomegaly and pulmonary vascular congestion which has slightly improved. 2: There is stable persistent bilateral lung airspace opacities which may represent lung infiltrates/pneumonia and/or pulmonary congestion. Dictated by: Dictated on workstation # [id number]
[2020-02-22] MEDS ORDERED: NS IV 1000 ML 1,000 ML IV SCH (13:00)
[2020-02-22 13:35] LABS: ABG BASE EXCESS -1.4 MMOL/L (-2.5-2.5); ABG OXYGEN SATURATION 94 % (94-100); ABG PCO2 36 MMHG (35-45); ABG PH 7.41 (7.37-7.43); ABG PO2 69 MMHG (79-93); ABG TCO2 23.9 MMOL/L (21.0-31.0); ALLENS TEST YES-POS; INSPIRED O2 4 L
[2020-02-22 13:36] LABS: PATIENT TEMP 37.1; VENTILATOR NO
[2020-02-22 17:25] VITALS: BP 146/74
[2020-02-22] MEDS ORDERED: CALCIUM CARBONATE 500 MG (TUMS) TAB.CHEW PO PRN (17:30)
[2020-02-22] MEDS ORDERED: diphenhydrAMINE 25 MG TAB (BENADRYL) PO PRN ×2 (17:30→21:00)
[2020-02-22] MEDS ORDERED: ALPRAZolam 0.25 MG (XANAX) TAB PO PRN (17:30)
[2020-02-22] MEDS ORDERED: ACETAMINOPHEN 325 MG TABLET PO PRN (17:30)
[2020-02-22] MEDS ORDERED: MELATONIN 3 MG TABLET PO PRN (17:30)
[2020-02-22] MEDS ORDERED: DOCUSATE SODIUM 100 MG (COLACE) CAP PO PRN ×2 (17:30→21:00)
[2020-02-22] MEDS ORDERED: ONDANSETRON 4 MG/2 ML (SDV) Z0FRAN IV PRN (17:30)
[2020-02-22] MEDS ORDERED: HYDROcodone/APAP 5 MG/325 MG (LORTAB) TAB PO PRN (17:30)
[2020-02-22] MEDS ORDERED: ENOXAPARIN 40 MG/0.4 ML (LOVENOX) SYR SC SCH ×2 (17:30→20:00)
[2020-02-22] MEDS ORDERED: guaiFENesin/CODEINE (ROBITUSSIN AC) 10ML UDC PO PRN (17:30)
[2020-02-22 18:21] LABS: BASOPHILS % (AUTO) 0 % (0-10); EOSINOPHILS % (AUTO) 0 % (0-10); HEMATOCRIT 35 % (35-52); LYMPHOCYTES # (AUTO) 0.5 10^3/uL (1.0-4.0); LYMPHOCYTES % (AUTO) 11 % (12-44); MEAN CORPUSCULAR HEMOGLOBIN 30 pg (25-34); MEAN CORPUSCULAR HGB CONC 31 g/dL (32-36); MEAN CORPUSCULAR VOLUME 96 fL (80-99); MEAN PLATELET VOLUME 9.2 fL (9.0-12.2); MONOCYTES # (AUTO) 0.2 10^3/uL (0.0-1.0); MONOCYTES % (AUTO) 4 % (0-12); NEUTROPHILS # (AUTO) 3.5 10^3/uL (1.8-7.8); NEUTROPHILS % (AUTO) 84 % (42-75); PLATELET COUNT 257 10^3/uL (130-400); WHITE BLOOD COUNT 4.2 10^3/uL (4.3-11.0)
[2020-02-22 18:26] LABS: ALBUMIN 3.5 GM/DL (3.2-4.5); CHLORIDE 105 MMOL/L (98-107); POTASSIUM 5.4 MMOL/L (3.6-5.0); SODIUM 135 MMOL/L (135-145)
[2020-02-22 18:28] LABS: CALCIUM 8.7 MG/DL (8.5-10.1)
[2020-02-22 18:29] LABS: FIBRIN DEGRADATION PRODUCTS 0.41 UG/ML (0.00-0.49); GLUCOSE 246 MG/DL (70-105); INR 1.1 (0.8-1.4); PROTHROMBIN TIME PATIENT 14.8 SEC (12.2-14.7); TOTAL PROTEIN 7.4 GM/DL (6.4-8.2)
[2020-02-22 18:30] LABS: CARBON DIOXIDE 18 MMOL/L (21-32)
[2020-02-22 18:31] LABS: BILIRUBIN,TOTAL 0.7 MG/DL (0.1-1.0)
[2020-02-22 18:32] LABS: ALKALINE PHOSPHATASE 50 U/L (40-136)
[2020-02-22 18:33] LABS: CREATININE SERUM 1.88 MG/DL (0.60-1.30); GFR ESTIMATED 27
[2020-02-22 18:34] LABS: BUN/CREATININE RATIO 21
[2020-02-22 18:35] LABS: ALANINE AMINOTRANSFERASE 27 U/L (0-55)
[2020-02-22 19:04] LABS: CREATINE KINASE MB 7.1 NG/ML (<6.6)
[2020-02-22] MEDS ORDERED: ENOXAPARIN 40 MG/0.4 ML (LOVENOX) SYR ONE (19:57)
[2020-02-22] MEDS ORDERED: SENNA W/DOCUSATE (SENOKOT S) TABLET ONE (19:57)
[2020-02-22 20:00] VITALS: BP 140/68
[2020-02-22] MEDS: SENNA W/DOCUSATE (SENOKOT S) TABLET PO SCH (20:23)
[2020-02-22] MEDS: NS IV 1000 ML 1,000 ML IV SCH (20:23)
[2020-02-22] MEDS ORDERED: inSUlin ASPART (NovoLOG) 1 UNIT/0.01 ML (CHARGE PER UNIT) ONE (21:37)
[2020-02-22] MEDS: inSUlin ASPART (NovoLOG) 1 UNIT/0.01 ML (CHARGE PER UNIT) SC SCH (21:49)
[2020-02-23] VITALS (8 sets, daily range): BP systolic 136–173; BP diastolic 64–73
--- NOTE | 2020-02-23 04:11 | Pulmonary Consultation ---
History of Present Illness History of Present Illness Date Seen by Provider: Feb 23, 2020 Time Seen by Provider: 04:09 Date of Admission Allergies and Home Medications Allergies Coded Allergies: butorphanol (Verified Allergy, Unknown, 02/20/20) Home Medications Hydrocodone Bit/Acetaminophen 1 Ea Tablet, 1 EACH PO Q6H PRN for BREAK THRU KNEE PAIN Prescribed by: HARRY SARAVIA on 12/11/18 1449 Past Hvxzzhy-Iyvvct-Kiwrna Hx Past Med/Social Hx: Reviewed Nursing Past Med/Soc Hx Patient Social History Alcohol Use: Denies Use Recreational Drug Use: No Smoking Status: Never a Smoker 2nd Hand Smoke Exposure: No Recent Foreign Travel: No Contact w/Someone Who Travel: No Recent Infectious Disease Expo: No Recent Hopitalizations: No Physical Abuse: No Sexual Abuse: No Mistreated: No Fear: No Immunizations Up To Date Date of Pneumonia Vaccine: Feb 21, 2018 Date of Influenza Vaccine: Feb 13, 2020 Seasonal Allergies Seasonal Allergies: No Past Medical History Surgeries: Yes Hysterectomy, Oophorectomy, Tonsillectomy Respiratory: No Cardiac: No High Cholesterol, Hypertension Neurological: No : 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 oz. 105.400396ke; 39.84 BMI Method:Stated Exam Exam Vital Signs Date Time Temp Pulse Resp B/P (MAP) Pulse Ox O2 Delivery O2 Flow Rate FiO2 02/23/20 01:00 48 02/23/20 00:00 36.0 64 20 138/65 (89) 93 Nasal Cannula 5.00 02/23/20 00:00 94 Nasal Cannula 5.00 02/22/20 21:00 94 Nasal Cannula 4.00 02/22/20 20:22 60 02/22/20 20:00 35.9 63 20 140/68 (92) 92 Nasal Cannula 4.00 02/22/20 20:00 94 Nasal Cannula 4.00 02/22/20 18:46 Nasal Cannula 3.50 02/22/20 17:38 94 Nasal Cannula 4.00 02/22/20 17:25 36.4 104 22 146/74 (98) 94 Nasal Cannula 4.00 02/22/20 16:30 72 20 154/72 95 Nasal Cannula 4.00 02/22/20 10:30 37.1 68 26 156/72 (100) 98 Nasal Cannula 5.00 I & O 02/23/20 07:00 Intake Total 200 ml Output Total 200 ml Balance 0 ml Height & Weight Height: 5'3.00" Weight: 232lbs. oz. 105.196349zk; 39.84 BMI Method:Stated General Appearance: Moderate Distress, Obese HEENT: No Moist Mucous Membranes (slightly dry mucous membranes) Neck: Full Range of Motion, Supple Respiratory: No Accessory Muscle Use, No Respiratory Distress, Decreased Breath Sounds; No Respiratory Distress, No Stridor, No Wheezing Cardiovascular: Regular Rate, Rhythm, Normal Peripheral Pulses Capillary Refill: Less Than 3 Seconds Extremity: Normal Capillary Refill, Pedal Edema (trace to 1+ pitting edema to BLE) Neurologic/Psychiatric: Alert, Oriented x3 Skin: Normal Color, Warm/Dry Results Lab Laboratory Tests 02/22/20 10:45 02/22/20 17:53 Assessment/Plan Assessment/Plan COVID 19 positive PNA with hypoxia --- symptoms started on 02/11 -Oxygen -Decadron -Remdesivir and convalescent plasma --- Pt understands these are EUA medications and consents to use. -self proning Acute renal failure with hyperkalemia -IVF -Monitor Anemia -Monitor OLINDA VILLAVICENCIO DO Feb 23, 2020 04:11
[2020-02-23 04:54] LABS: BASOPHILS % (AUTO) 0 % (0-10); EOSINOPHILS % (AUTO) 0 % (0-10); HEMATOCRIT 36 % (35-52); HEMOGLOBIN 11.2 g/dL (11.5-16.0); LYMPHOCYTES # (AUTO) 0.6 10^3/uL (1.0-4.0); LYMPHOCYTES % (AUTO) 18 % (12-44); MEAN CORPUSCULAR HEMOGLOBIN 30 pg (25-34); MEAN CORPUSCULAR HGB CONC 31 g/dL (32-36); MEAN CORPUSCULAR VOLUME 96 fL (80-99); MEAN PLATELET VOLUME 9.3 fL (9.0-12.2); MONOCYTES # (AUTO) 0.3 10^3/uL (0.0-1.0); MONOCYTES % (AUTO) 7 % (0-12); NEUTROPHILS # (AUTO) 2.7 10^3/uL (1.8-7.8); NEUTROPHILS % (AUTO) 74 % (42-75); PLATELET COUNT 252 10^3/uL (130-400); WHITE BLOOD COUNT 3.7 10^3/uL (4.3-11.0)
[2020-02-23 05:22] LABS: CALCIUM 8.4 MG/DL (8.5-10.1); CREATININE SERUM 1.64 MG/DL (0.60-1.30); POTASSIUM 5.6 MMOL/L (3.6-5.0)
[2020-02-23 05:45] LABS: ATYPICAL LYMPHOCYTES 3 %; BLAST CELLS 1 %; HYPOCHROMASIA SLIGHT; LYMPHOCYTES % (MANUAL) 13 %; METAMYELOCYTES % 1 %; MICROCYTOSIS SLIGHT; MONOCYTES % (MANUAL) 7 %; NEUTROPHILS % (MANUAL) 75 %
[2020-02-23] MEDS: inSUlin ASPART (NovoLOG) 1 UNIT/0.01 ML (CHARGE PER UNIT) SC SCH ×4 (06:00→20:38)
[2020-02-23] MEDS ORDERED: REMDESIVIR INJ (NON-FORMULARY) 200 MG in NS (IVPB) 210 ML IV ONE (06:45)
[2020-02-23] MEDS: HYDROcodone/APAP 5 MG/325 MG (LORTAB) TAB PO PRN (07:42)
[2020-02-23] MEDS: ENOXAPARIN 40 MG/0.4 ML (LOVENOX) SYR SC SCH ×2 (07:51→20:36)
[2020-02-23] MEDS: PANTOPRAZOLE 40 MG (PROTONIX) VIAL IV SCH (07:51)
[2020-02-23] MEDS: SENNA W/DOCUSATE (SENOKOT S) TABLET PO SCH ×2 (07:52→20:38)
[2020-02-23] MEDS: NS IV 1000 ML 1,000 ML IV SCH ×3 (07:52→20:38)
[2020-02-23] MEDS ORDERED: BENZONATATE 100 MG (TESSALON) CAPSULE PO ONE (09:06)
--- NOTE | 2020-02-23 09:45 | NUR ---
LATE ENTRY: 0740 PT ASSESSMENT COMPLETE SEE FLOW SHEET, PT ALERT AND ORIENTED SITTING UP ON SIDE OF BED EATING BREAKFAST, PT C/O OF BACK PAIN RATES PAIN AT 8 ON 0-10 SCALE, LORTAB GIVEN FOR PAIN, CALL LIGHT AND OTHER PERSONAL ITEMS WITHIN REACH NO NEEDS NOTED AT THIS TIME, WILL CONTINUE TO MONITOR. CONSENT OBTAINED FOR CONVALESCENT PLASMA, PT UNSURE OF REMDESIVIR TREATMENT, LITERATURE GIVEN TO PT, WILL AWAIT VERBAL CONSENT BEFORE ADMINISTRATION.
--- NOTE | 2020-02-23 11:09 | History & Physical ---
HPI History of Present Illness: 69 yo F that presents with shortness of breath since 02/12. Patient states that she got her flu vaccine on 02/11 and after that she started to feel tired and worn down. She started having the cough and shortness of breath that weekend and states that she went to ER and they wanted to admit her but she declined. She continued to get worse and that is what brought her back to the ER. She is now requiring oxygen and has elevated Cr. Patient states that she does not know of anyone else who is sick. She does live with a roommate but her roommate is well. States that she has not left her house much, really only to go to the doctor. States that she has IDDM, HTN and she had ovarian Ca 20 years ago. She is not sure what medications she is on but she goes to [facility] in [place]. This AM she is feeling better. Still having some shortness of breath and is on 5L NC. Normally patient is on RA. She has been up moving around with walker. Source: patient Exam Limitations: no limitations Date seen by provider: Feb 23, 2020 Time Seen by Provider: 09:45 Attending Physician Gisela Strong DO [facility] [place] [place] Date of Admission Feb 22, 2020 at 17:20 Home Medications Home Medications Reviewed patient Home Medication Reconciliation performed by pharmacy medication reconciliations school bus technician and/or nursing. Patients Allergies have been reviewed. Allergies Coded Allergies: butorphanol (Verified Allergy, Unknown, 02/20/20) VJT-Zqmyka-Yhwdqe Hx Patient Social History Alcohol Use: Denies Use Recreational Drug Use: No Smoking Status: Never a Smoker 2nd Hand Smoke Exposure: No Recent Foreign Travel: No Contact w/other who traveled: No Recent Hopitalizations: No Recent Infectious Disease Expo: No Immunizations Up To Date Date of Pneumonia Vaccine: Feb 21, 2018 Date of Influenza Vaccine: Feb 13, 2020 Past Medical History IDDM HTN Obesity Review of Systems (CHC) Constitutional: chills; No fever; malaise EENTM: other (loss of smell); No mouth pain, No throat pain Respiratory: cough, dyspnea on exertion, short of breath Cardiovascular: no symptoms reported; No chest pain, No edema Gastrointestinal: no symptoms reported Genitourinary: no symptoms reported; No dysuria, No frequency, No hematuria : No Musculoskeletal: no symptoms reported Skin: no symptoms reported; No lesions, No rash Psychiatric/Neurological: No Symptoms Reported Reviewed Test Results Reviewed Test Results Lab Laboratory Tests Test 02/22/20 13:20 02/22/20 17:53 02/22/20 20:39 02/23/20 04:37 Range/Units Blood Gas Puncture Site LEFT RADIAL Blood Gas Patient Temperature 37.1 Arterial Blood pH 7.41 7.37-7.43 Arterial Blood Partial Pressure CO2 36 35-45 MMHG Arterial Blood Partial Pressure O2 69 L 79-93 MMHG Arterial Blood HCO3 23 23-27 MMOL/L Arterial Blood Total CO2 23.9 21.0-31.0 MMOL/L Arterial Blood Oxygen Saturation 94 94-100 % Arterial Blood Base Excess -1.4 -2.5-2.5 MMOL/L Den Test YES-POS Blood Gas Ventilator Setting NO Blood Gas Inspired Oxygen 4 L White Blood Count 4.2 L 3.7 L 4.3-11.0 10^3/uL Red Blood Count 3.70 L 3.75 L 3.80-5.11 10^6/uL Hemoglobin 11.0 L 11.2 L 11.5-16.0 g/dL Hematocrit 35 36 35-52 % Mean Corpuscular Volume 96 96 80-99 fL Mean Corpuscular Hemoglobin 30 30 25-34 pg Mean Corpuscular Hemoglobin Concent 31 L 31 L 32-36 g/dL Red Cell Distribution Width 12.8 12.6 10.0-14.5 % Platelet Count 257 252 130-400 10^3/uL Mean Platelet Volume 9.2 9.3 9.0-12.2 fL Immature Granulocyte % (Auto) 1 1 % Neutrophils (%) (Auto) 84 H 74 42-75 % Lymphocytes (%) (Auto) 11 L 18 12-44 % Monocytes (%) (Auto) 4 7 0-12 % Eosinophils (%) (Auto) 0 0 0-10 % Basophils (%) (Auto) 0 0 0-10 % Neutrophils # (Auto) 3.5 2.7 1.8-7.8 10^3/uL Lymphocytes # (Auto) 0.5 L 0.6 L 1.0-4.0 10^3/uL Monocytes # (Auto) 0.2 0.3 0.0-1.0 10^3/uL Eosinophils # (Auto) 0.0 0.0 0.0-0.3 10^3/uL Basophils # (Auto) 0.0 0.0 0.0-0.1 10^3/uL Immature Granulocyte # (Auto) 0.0 0.0 0.0-0.1 10^3/uL Prothrombin Time 14.8 H 12.2-14.7 SEC INR Comment 1.1 0.8-1.4 Activated Partial Thromboplast Time 34 24-35 SEC D-Dimer 0.41 0.00-0.49 UG/ML Sodium Level 135 137 135-145 MMOL/L Potassium Level 5.4 H 5.6 H 3.6-5.0 MMOL/L Chloride Level 105 108 H 98-107 MMOL/L Carbon Dioxide Level 18 L 17 L 21-32 MMOL/L Anion Gap 12 12 5-14 MMOL/L Blood Urea Nitrogen 40 H 40 H 7-18 MG/DL Creatinine 1.88 H 1.64 H 0.60-1.30 MG/DL Estimat Glomerular Filtration Rate 27 31 BUN/Creatinine Ratio 21 24 Glucose Level 246 H 230 H 70-105 MG/DL Lactic Acid Level 1.08 0.50-2.00 MMOL/L Calcium Level 8.7 8.4 L 8.5-10.1 MG/DL Corrected Calcium 9.1 8.5-10.1 MG/DL Total Bilirubin 0.7 0.1-1.0 MG/DL Aspartate Amino Transf (AST/SGOT) 45 H 5-34 U/L Alanine Aminotransferase (ALT/SGPT) 27 0-55 U/L Alkaline Phosphatase 50 40-136 U/L Lactate Dehydrogenase 326 H 125-220 U/L Creatine Kinase MB 7.1 *H <6.6 NG/ML Troponin I < 0.028 <0.028 NG/ML C-Reactive Protein High Sensitivity 11.92 H 0.00-0.50 MG/DL B-Type Natriuretic Peptide 30.7 <100.0 PG/ML Total Protein 7.4 6.4-8.2 GM/DL Albumin 3.5 3.2-4.5 GM/DL Glucometer 321 H 70-110 MG/DL Neutrophils % (Manual) 75 % Lymphocytes % (Manual) 13 % Monocytes % (Manual) 7 % Metamyelocytes % 1 % Atypical Lymphocytes 3 % Blast Cells 1 % Hypochromasia SLIGHT Microcytosis SLIGHT Physical Exam-(CHC) Physical Exam Vital Signs VS - Last 72 Hours, by Label 02/22/20 02/22/20 02/22/20 02/22/20 10:30 16:30 17:25 17:38 Temp 37.1 36.4 Pulse 68 72 104 Resp 26 20 22 B/P (MAP) 156/72 (100) 154/72 146/74 (98) Pulse Ox 98 95 94 94 O2 Delivery Nasal Cannula Nasal Cannula Nasal Cannula Nasal Cannula O2 Flow Rate 5.00 4.00 4.00 4.00 02/22/20 02/22/20 02/22/20 02/22/20 18:46 20:00 20:00 20:22 Temp 35.9 Pulse 63 60 Resp 20 B/P (MAP) 140/68 (92) Pulse Ox 94 92 O2 Delivery Nasal Cannula Nasal Cannula Nasal Cannula O2 Flow Rate 3.50 4.00 4.00 02/22/20 02/23/20 02/23/20 02/23/20 21:00 00:00 00:00 01:00 Temp 36.0 Pulse 64 48 Resp 20 B/P (MAP) 138/65 (89) Pulse Ox 94 94 93 O2 Delivery Nasal Cannula Nasal Cannula Nasal Cannula O2 Flow Rate 4.00 5.00 5.00 02/23/20 02/23/20 02/23/20 02/23/20 04:00 04:00 06:38 07:40 Temp 35.8 36.1 Pulse 62 54 64 Resp 22 18 B/P (MAP) 140/68 (92) 160/70 (100) Pulse Ox 94 94 96 O2 Delivery Nasal Cannula Nasal Cannula Nasal Cannula O2 Flow Rate 5.00 5.00 5.00 02/23/20 02/23/20 02/23/20 07:48 10:23 10:47 Temp 37.1 Pulse 68 Pulse Ox 94 98 91 O2 Delivery Nasal Cannula Nasal Cannula O2 Flow Rate 5.00 5.00 Capillary Refill : Less Than 3 Seconds General Appearance: WD/WN, no apparent distress, obese HEENT: PERRL/EOMI Neck: non-tender, full range of motion, supple Respiratory: normal breath sounds Cardiovascular: normal peripheral pulses, regular rate, rhythm, no edema Gastrointestinal: normal bowel sounds, non tender, soft Back: no CVA tenderness, no vertebral tenderness Extremities: no pedal edema, no calf tenderness, normal capillary refill Neurologic/Psychiatric: douper II-XII nml as tested, no motor/sensory deficits, alert, normal mood/affect, oriented x 3 Skin: normal color, warm/dry Lymphatic: no adenopathy Assessment/Plan Assessment/Plan Admission Status: Inpatient Order (span 2 midnights) Reason for Inpatient Admission: Requiring ICU care and increased oxygen need (1) COVID-19 virus infection Status: Acute Assessment & Plan: 02/22: Dr Gunter following and managing critical care (2) Pneumonia due to human coronavirus Status: Acute (3) Hypoxia Status: Acute Assessment & Plan: 02/22: 5L NC, no home oxygen requirement, continue to titrate as tolerated, IS in room, encourage ambulation with walker (4) Acute kidney failure Status: Acute Assessment & Plan: 02/22: Unsure of baseline, trending down, continue with IVFs Qualifiers: Qualified Codes: N17.9 - Acute kidney failure, unspecified (5) Hyperkalemia Status: Acute (6) HTN (hypertension) Status: Chronic Qualifiers: Qualified Codes: I10 - Essential (primary) hypertension (7) Insulin dependent diabetes mellitus Status: Chronic Assessment & Plan: 02/22: A1c pending, patient unsure of home insulin dose (8) DVT prophylaxis Status: Acute Assessment & Plan: - Lovenox Clinical Quality Measures DVT/VTE Risk/Contraindication: Risk Factor Score Per Nursin RFS Level Per Nursing on Admit: 3=High Copy Copies To 1: [facility] TANIA Thompson HOLLY R MD Feb 23, 2020 11:09
[2020-02-23] MEDS ORDERED: RT-ALBUTEROL INHALER HFA (VENTOLIN HFA) 18 GM IH PRN (12:00)
[2020-02-23 14:10] LABS: ALBUMIN 3.3 GM/DL (3.2-4.5); BILIRUBIN,TOTAL 0.6 MG/DL (0.1-1.0); CALCIUM 8.3 MG/DL (8.5-10.1); CREATININE SERUM 1.62 MG/DL (0.60-1.30); POTASSIUM 5.1 MMOL/L (3.6-5.0); TOTAL PROTEIN 7.1 GM/DL (6.4-8.2)
--- NOTE | 2020-02-23 14:32 | NUR ---
"RD ASSESSMENT PMHx: hypercholesterolemia; HTN; DM PT INTERACTION: Note pt is COVID-19 positive, per chart review. Note all diet information gathered for nutrition assessment is per chart review. Note avg PO intake 75% x2meal. Note no BM has been recorded, and pt currently on bowel regimen of senna BID. Note unable to determine recent wt hx. Note unable to determine current level of DM management, and unable to determine recent HbA1c. ABNORMAL NUTRITION-RELATED LAB VALUES LOW: Ca 8.4; HIGH: K 5.4; Cl 108; BUN 40; cr 1.64; glu 230 Est. kcal needs: 1550 kcal | 15 kcal/kg Est. Pro needs: 82 g Pro | 0.8 g Pro/kg PES STATEMENT: Given current PO intake, no nutrition diagnosis at this time (NO-1.1) INTERVENTION: Continue with current diet order of CHO 60g/m 1snack diet. Pt may benefit from nutrition supplementation if PO intake declines. Did not offer DM education at this time, d/t isolation precautions. Will continue to follow and reassess as pt needs, intake, and status change. Yesika Abad, MS, RD, LD"
[2020-02-23] MEDS ORDERED: DEXTROSE 50% 50 ML (IMS) SYR IV NR (15:00)
[2020-02-23] MEDS ORDERED: SOD POLYSTERENE 15 GM/60 ML (KAYEXALATE) UNIT DOSE PO NR (15:00)
[2020-02-23] MEDS ORDERED: SODIUM BICARB 8.4% 50 MEQ/50 ML VIAL IV NR (15:00)
[2020-02-23] MEDS ORDERED: inSUlin (REGULAR) HUMAN 1 UNIT/0.01 ML (CHARGE PER UNIT) IV NR (15:00)
--- NOTE | 2020-02-23 15:01 | NUR ---
DR VILLAVICENCIO NOTIFIED OF PT'S REPEAT BMP RESULTS NEW ORDERS RECEIVED SEE ORDER HX Addendum: 02/23/20 at 1525 by JESUS ELDESMA RN THIS RN DOUBLE CHECKED WITH DR VILLAVICENCIO ON ORDER HX PT K+ LEVEL IS 5.1. ORDERS RECEIVED TO CONTINUE WITH KAYEXALATE, BICARB, INSULIN AND D50.
[2020-02-23] MEDS: RT-ALBUTEROL INHALER HFA (VENTOLIN HFA) 18 GM IH SCH ×3 (15:17→23:39)
[2020-02-23] MEDS ORDERED: REMDESIVIR INJ (NON-FORMULARY) 200 MG in NS (IVPB) 210 ML IV NR (16:00)
--- NOTE | 2020-02-23 16:05 | NUR ---
VERBAL CONSENT GIVEN FOR REMDESIVIR, PT SITTING UP IN BED WATCHING TV, VOICES NO C/O OF PAIN, CALL LIGHT AND OTHER PERSONAL ITEMS WITHIN REACH WILL CONTINUE TO MONITOR.
--- NOTE | 2020-02-23 17:30 | NUR ---
THIS RN TAKING OVER CARE OF PT. PT IS ORIENTED TO ROOM. REPORTS SHE IS HAS NO PAIN OR ANY ISSUES AT THE MOMENT. CALL LIGHT AT SIDE.
--- NOTE | 2020-02-23 17:43 | NUR ---
1730 PT TO ROOM 428 VIA W/C ACCOMPANIED BY THIS RN, REPORT GIVEN TO
--- NOTE | 2020-02-23 20:45 | NUR ---
Dr. Torres notified of bp at 173/73 with hr 62. New order rec to continue home medication of Lisinopril 40mg Daily. Will start tonight.
[2020-02-23] MEDS ORDERED: lisINopril 40 MG (PRINIVIL) TABLET ONE (20:48)
[2020-02-23] MEDS ORDERED: LISI40TA PO (20:50)
[2020-02-24] VITALS (8 sets, daily range): BP systolic 147–174; BP diastolic 64–83
[2020-02-24] MEDS: hydrALAZINE (APESOLINE) 20 MG/ML VIAL IV PRN ×2 (00:44→04:28)
[2020-02-24] MEDS: RT-ALBUTEROL INHALER HFA (VENTOLIN HFA) 18 GM IH SCH ×4 (03:40→15:37)
[2020-02-24] MEDS: inSUlin ASPART (NovoLOG) 1 UNIT/0.01 ML (CHARGE PER UNIT) SC SCH ×3 (05:47→16:55)
[2020-02-24] MEDS: HYDROcodone/APAP 5 MG/325 MG (LORTAB) TAB PO PRN (06:02)
[2020-02-24 06:13] LABS: BASOPHILS % (AUTO) 0 % (0-10); EOSINOPHILS % (AUTO) 0 % (0-10); HEMATOCRIT 35 % (35-52); HEMOGLOBIN 11.1 g/dL (11.5-16.0); LYMPHOCYTES # (AUTO) 1.1 10^3/uL (1.0-4.0); LYMPHOCYTES % (AUTO) 19 % (12-44); MEAN CORPUSCULAR HEMOGLOBIN 30 pg (25-34); MEAN CORPUSCULAR HGB CONC 31 g/dL (32-36); MEAN CORPUSCULAR VOLUME 95 fL (80-99); MEAN PLATELET VOLUME 9.3 fL (9.0-12.2); MONOCYTES # (AUTO) 0.4 10^3/uL (0.0-1.0); MONOCYTES % (AUTO) 6 % (0-12); NEUTROPHILS # (AUTO) 4.3 10^3/uL (1.8-7.8); NEUTROPHILS % (AUTO) 74 % (42-75); PLATELET COUNT 317 10^3/uL (130-400); WHITE BLOOD COUNT 5.9 10^3/uL (4.3-11.0)
[2020-02-24 06:21] LABS: ALBUMIN 3.4 GM/DL (3.2-4.5)
[2020-02-24 06:23] LABS: CALCIUM 8.3 MG/DL (8.5-10.1)
[2020-02-24 06:24] LABS: TOTAL PROTEIN 7.1 GM/DL (6.4-8.2)
[2020-02-24 06:26] LABS: BILIRUBIN,TOTAL 0.6 MG/DL (0.1-1.0)
[2020-02-24 06:28] LABS: CREATININE SERUM 1.37 MG/DL (0.60-1.30)
[2020-02-24] MEDS ORDERED: REMDESIVIR INJ (NON-FORMULARY) 100 MG in NS (IVPB) 230 ML IV SCH ×2 (06:45→16:00)
--- NOTE | 2020-02-24 07:47 | Physician Query Clarification ---
PQ-Intro New Diagnosis Admission/Discharge Admission Date: Feb 22, 2020 at 17:20 Discharge Date: The medical record reflects the following clinical scenario: Dr. Torres History/Risk Factors: COVID 19 virus COVID 19 pneumonia Hypoxia Clinical Findings:O2 sats on admission to ED 82%. Labored breathing, tachypnea. T 37.1, P 68, Resp 26, pulse ox 98. Blood gases pH 7.41 PC02 36, pO2 69,base excess -1.4. Treatment: Placed on supplemental oxygen and her O2 sats inproved to mid to upper 90s from 82%. Oxy Flow 5L, IV Decadron Question: What condition best reflects the above clinical scenario? Please document a response in the Progress Noter or Discharge Summary. 1. Acute respiratory failure with hypoxia. 2. Hypoxia. 3. Other, with explanation of the clinical findings. 4. Clinically undetermined, no explanation for the clinical findings. PHYSICIAN RESPONSE What condition reflects above: 2 Please remember a lack of response to the above will prompt a phone page by CDI/Coding staff. In responding to this query, please exercise your independent professional judgment. The purpose of this communication is to more accurately reflect the complexity of your patients condition. The fact that a question is asked does not imply that any particular answer is desired or expected. Thank you for your timely response to this clarification. Requestors name: Gerri Merida [facility] Phone # ext [phone] or [phone] THIS PHYSICIAN QUERY FORM IS A PERMANENT PART OF THE MEDICAL RECORD GERRI MERIDA Feb 24, 2020 07:47 DC TORRES MD Feb 24, 2020 20:39
[2020-02-24] MEDS: SENNA W/DOCUSATE (SENOKOT S) TABLET PO SCH (08:36)
[2020-02-24] MEDS: ENOXAPARIN 40 MG/0.4 ML (LOVENOX) SYR SC SCH (08:36)
[2020-02-24] MEDS: PANTOPRAZOLE 40 MG (PROTONIX) VIAL IV SCH (08:36)
[2020-02-24] MEDS ORDERED: amLODIPine 5 MG (NORVASC) TAB PO SCH (09:00)
[2020-02-24] MEDS ORDERED: lisINopril 40 MG (PRINIVIL) TABLET PO SCH (09:00)
--- NOTE | 2020-02-24 11:26 | Discharge Summary ---
Diagnosis/Chief Complaint Date of Admission Feb 22, 2020 at 17:20 Date of Discharge 02/24/2020 Admission Diagnosis Admission Diagnosis See problem list Discharge Diagnosis See Below Problems/Diagnosis: (1) COVID-19 virus infection Assessment & Plan: 02/22: Dr Gunter following and managing critical care 02/23: Improving, patient desires to go home, Will d/c with oxygen, home oxygen study completed, patient to be on 2L NC Status: Acute (2) Pneumonia due to human coronavirus Status: Acute (3) Hypoxia Assessment & Plan: 02/22: 5L NC, no home oxygen requirement, continue to titrate as tolerated, IS in room, encourage ambulation with walker Status: Acute (4) Acute kidney failure Assessment & Plan: 02/22: Unsure of baseline, trending down, continue with IVFs 02/23: Improving, Will need labs in 1 week Qualifiers: Qualified Codes: N17.9 - Acute kidney failure, unspecified Status: Acute (5) Hyperkalemia Status: Acute (6) HTN (hypertension) Qualifiers: Qualified Codes: I10 - Essential (primary) hypertension Status: Chronic (7) Insulin dependent diabetes mellitus Assessment & Plan: 02/22: A1c pending, patient unsure of home insulin dose Status: Chronic (8) DVT prophylaxis Assessment & Plan: - Lovenox Status: Acute Chief Complaint/HPI Chief Complaint/HPI 69 yo F that presents with shortness of breath since 02/12. Patient states that she got her flu vaccine on 02/11 and after that she started to feel tired and worn down. She started having the cough and shortness of breath that weekend and states that she went to ER and they wanted to admit her but she declined. She continued to get worse and that is what brought her back to the ER. She is now requiring oxygen and has elevated Cr. Patient states that she does not know of anyone else who is sick. She does live with a roommate but her roommate is well. States that she has not left her house much, really only to go to the doctor. States that she has IDDM, HTN and she had ovarian Ca 20 years ago. She is not sure what medications she is on but she goes to [facility] in [facility]. This AM she is feeling better. Still having some shortness of breath and is on 5L NC. Normally patient is on RA. She has been up moving around with walker. Discharge Summary-Simple/Stand Consultations Dr Gunter: Pulmonary Critical Care Discharge Physical Examination Allergies: Coded Allergies: butorphanol (Verified Allergy, Unknown, 02/20/20) Vitals & I&Os Vital Sign - Last 12Hours Date Time Temp Pulse Resp B/P (MAP) Pulse Ox O2 Delivery O2 Flow Rate FiO2 02/24/20 10:20 100 Nasal Cannula 3.00 02/24/20 08:00 36.2 68 20 147/64 (91) Intake and Output 02/24/20 00:00 Intake Total 700 ml Output Total 600 ml Balance 100 ml General Appearance: Alert, Oriented X3, Cooperative, No Acute Distress HEENT: Mucous Memb Moist/[place] Respiratory: Clear to Auscultation Cardiovascular: Regular Rate, No Murmurs Abdominal: Normal Bowel Sounds, Soft, No Tenderness, No Masses Extremities: No Edema, No Tenderness/Swelling Skin: No Rashes, No Breakdown Neuro: Normal Speech, Strength at 5/5 X4 Ext, Sensation Intact, Cranial Nerves 3-12 NL Psych/Mental Status: Mental Status NL, Mood NL Hospital Course Was the Problem List Reviewed?: Yes See final discharge diagnosis. Discussion & Recommendations 69 yo F with COVID 19 positive test at outside facility that presented to ER with worsening shortness of breath and hypoxia. Patient initally admitted to cardiac stepdown. Patient started on antiviral and steroids. Patient continued to improve during admission but had new oxygen requirement. Patient had home oxygen study and will be discharged on 2L. Patient will have close f.u after discharge. Discharge Condition at discharge stable Instructions to patient/family Please see electronic discharge instructions given to patient. Discharge Medications Reviewed and agree with Discharge Medication list on patient's Discharge Instruction sheet Clinical Quality Measures DVT/VTE Risk/Contraindication: Risk Factor Score Per Nursin RFS Level Per Nursing on Admit: 3=High Copy Copies To 1: Katie KEYES HOLLY R MD Feb 24, 2020 11:26
[2020-02-24] MEDS ORDERED: METF-397 PO (11:54)
[2020-02-24] MEDS ORDERED: MULT-974 PO (11:54)
[2020-02-24] MEDS ORDERED: NATE60TA8 PO (11:54)
[2020-02-24] MEDS ORDERED: CITA20TA9 PO (11:54)
[2020-02-24] MEDS ORDERED: HUM100VI15 SQ ×2 (11:54)
[2020-02-24] MEDS ORDERED: RIVA20TA PO (11:54)
[2020-02-24] MEDS ORDERED: CALC-50 PO (11:54)
[2020-02-24] MEDS ORDERED: IBUP-30 PO (11:56)
[2020-02-24] MEDS ORDERED: IBUP-2473 PO (11:56)
--- NOTE | 2020-02-24 11:57 | NUR ---
I SPOKE WITH THE PATIENT, HER FRIEND, KWABENA, AND WENT THROUGH THE EXTERNAL MED HISTORY TO COMPLETE THIS MED REC OTC: CALCIUM WITH VITAMIN D3 MULTI VITAMIN IBUPROFEN
--- NOTE | 2020-02-24 16:12 | NUR ---
PT RESTING SPO2 87% ON ROOM AIR AFTER 33 MINUTES. PT QUALIFIES FOR HOME O2. PT PLACED ON 2LPM NC AND SPO2 INCREASES TO 95% AFTER 2 MINUTES. Addendum: 02/24/20 at 1613 by SHONDA AC RT Amended: Links added.
[2020-02-24] MEDS ORDERED: AMLO5TAB9 PO (17:06)
--- NOTE | 2020-02-24 17:07 | Discharge Summary ---
Discharge [facility] Reconcile Patient Problems Problems Reviewed?: Yes Discharge Medications New, Converted or Re-Newed RX: Transmitted to Pharmacy New Medications: Amlodipine Besylate (Amlodipine Besylate) 5 Mg Tablet 5 MG PO DAILY, #30 TAB Continued Medications: Calcium Carbonate/Vitamin D3 (Calcium 500 + Vit D3 400 Tab) 1 Each Tablet 1 EACH PO DAILY, TAB Citalopram Hydrobromide (Citalopram HBr) 20 Mg Tablet 20 MG PO DAILY, TAB Insulin NPH Hum/Reg Insulin Hm (Novolin 70-30 100 Unit/ml Vial) 100 Unit/1 Ml Vial 24 UNITS SQ DAILY, VIAL Insulin NPH Hum/Reg Insulin Hm (Novolin 70-30 100 Unit/ml Vial) 100 Unit/1 Ml Vial 13 UNIT SQ HS, VIAL Metformin HCl (Metformin HCl) 500 Mg Tablet 500 MG PO BID, TAB Multivitamin (Multi-Vitamin Daily) 1 Each Tablet 1 EACH PO DAILY, TAB Nateglinide (Nateglinide) 60 Mg Tablet 60 MG PO TID, TAB Rivaroxaban (Xarelto) 20 Mg Tablet 20 MG PO DAILY, TAB Discontinued Medications: Ibuprofen (Ibuprofen) 200 Mg Tablet 600 MG PO Q6H PRN for PAIN-MILD (1-4), TAB TAKES 3 (200MG) TABLETS Lisinopril (Lisinopril) 40 Mg Tablet 40 MG PO DAILY, TAB Patient Instructions Goal/Follow Up Appt: Pedro Pablo Devries on SundayMar 05 @ 0920 [facility] Shortness of breath Activity & Diet Discharge Diet: Cardiac Diet Activity as Tolerated: Yes Copy Copies To 1: Katie KEYES HOLLY R MD Feb 24, 2020 17:07
--- NOTE | 2020-02-25 08:06 | NUR ---
CM/SS: LATE ENTRY: Pt qualified for oxygen per oxygen study. This worker request of the RN to ask pt what DME company she wanted to use and she indicated she wanted to use [employer], then she indicated she wanted to use [facility] in [place], [place]. for her oxygen. [facility] contacted to obtain fax number. Information faxed to [facility] for the oxygen - note it was after 5:00pm as the script had not been received. TAWNY Parker indicated that the pts ride was going by the DME to pick up and delivery driver a portable and would be able to bring it to hospital for pt. RN informed that the information was faxed late due to not having the script. Pt was discharged to home.
== END 2020-02-24 17:51 | disposition home or self-care (01) | DRG 177 ==
LOC: EDUNIT# 10:17 → ER FS 10:18 → ICU 17:20 → 4TH 02-23 17:17
PROVIDERS: ADMIT Internal Medicine; ATTEND Internal Medicine
DX: U07.1 COVID-19 (principal); J12.89 Other viral pneumonia; Z68.41 Body mass index [BMI] 40.0-44.9, adult; N17.9 Acute kidney failure, unspecified; R09.02 Hypoxemia; I10 Essential (primary) hypertension; E78.00 Pure hypercholesterolemia, unspecified; E11.9 Type 2 diabetes mellitus without complications; E66.9 Obesity, unspecified; D64.9 Anemia, unspecified; E87.5 Hyperkalemia; M19.91 Primary osteoarthritis, unspecified site; F32.9 Major depressive disorder, single episode, unspecified; Z79.4 Long term (current) use of insulin; Z85.43 Personal history of malignant neoplasm of ovary
CPT/HCPCS: 36415; 71045; 80048; 80053; 82553; 82728; 82805; 82962; 83605; 83615; 83880; 84484; 85007; 85025; 85027; 85379; 85610; 85730; 86141; 86900; 86901; 87040; 93005; 93041; 94640; 94664; 94760; 99291

== ENCOUNTER → 2021-09-21 | Outpatient (CLI) | payer MEDICARE, MEDICAID ==
[~2021-09-21] MED LIST changes: +AMLO-250 PO; +CALC-50 PO; +CITA20TA9 PO; +HUM100VI15 SQ; +IBUP-2473 PO; +IBUP-30 PO; +LISI40TA9 PO; +METF-397 PO; +MULT-974 PO; +NATE60TA14 PO; +RIVA20TA PO
--- NOTE | 2021-09-21 12:35 | Diagnostic Imaging Report ---
HISTORY: Left hand pain TECHNIQUE: 3 views of the left hand COMPARISON: None FINDINGS: No acute fracture or dislocation is seen in the left hand. Alignment appears normal. Subcortical cystlike changes and joint space loss are seen in the carpus which may be degenerative. There also appears to be erosive changes at the lunate, scaphoid and possibly capitate. There is a joint body in the medial wrist. There is chondrocalcinosis. IMPRESSION: 1. Erosions in the left carpus can be seen with an inflammatory arthropathy such as rheumatoid. There are superimposed degenerative changes as well. Dictated by: Dictated on workstation # [id number]
== END ==
LOC: RAD FS 09:00
PROVIDERS: ATTEND Nurse Practitioner Family
DX: M15.4 Erosive (osteo)arthritis (principal)
CPT/HCPCS: 73130